=== PATIENT | male | born 1975 | race American Indian/Alaskan Native ===

== ENCOUNTER 2016-09-13 04:01 | Emergency (ER) | payer SELFPAY ==
[2016-09-13] MEDS ORDERED: NACL 0.9% 1000 ML 1,000 ML IV ONE (04:25)
[2016-09-13 05:20] LABS: Basophils % (Auto) 0.4 % (0.0-1.8); Eosinophils % (Auto) 1.4 % (0.0-4.3); Hematocrit 43.2 % (35.5-45.6); Hemoglobin 14.1 gm/dl (11.8-15.2); Mean Corpuscular HGB Conc 33 % (32-34); Mean Corpuscular Hemoglobin 31 pg (28-32); Mean Corpuscular Volume 94 fl (84-94); Platelet Count 166 K/mm3 (140-440); Red Blood Count 4.58 M/mm3 (3.65-5.03); Red Cell Distribution Width 13.4 % (13.2-15.2); White Blood Count 5.2 K/mm3 (4.5-11.0)
[2016-09-13 05:25] LABS: INR 0.93 (0.87-1.13)
[2016-09-13 05:26] LABS: Partial Thromboplastin Time 29.9 Sec. (24.2-36.6)
[2016-09-13 05:30] LABS: Alanine Aminotransferase 20 units/L (7-56); Albumin 4.1 g/dL (3.9-5); Albumin/Globulin Ratio 1.5 %; Alkaline Phosphatase 73 units/L (35-129); Anion Gap 12 mmol/L; Bilirubin,Total 0.4 mg/dL (0.1-1.2); Blood Urea Nitrogen 10 mg/dL (9-20); Calcium 8.9 mg/dL (8.4-10.2); Carbon Dioxide 31 mmol/L (22-30); Glucose 96 mg/dL (75-100); Lipase 17 units/L (13-60); Potassium 3.9 mmol/L (3.6-5.0); Sodium 140 mmol/L (137-145); Total Protein 6.9 g/dL (6.3-8.2)
[2016-09-13 08:13] LABS: Bilirubin,Urine NEG (Negative); Blood,Urine NEG (Negative); Ketones,Urine NEG (Negative); Leukocyte Esterase,Urine NEG (Negative); Mucus,Urine FEW /HPF; Nitrite,Urine NEG (Negative); Protein,Urine <15 mg/dL mg/dL (Negative); RBC,Urine < 1.0 /HPF (0.0-6.0); Urobilinogen,Urine < 2.0 mg/dL (<2.0); WBC,Urine < 1.0 /HPF (0.0-6.0)
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
[2016-09-13 11:17] VITALS: BP 143/91
== END 2016-09-13 11:23 | disposition home or self-care (01) ==
LOC: ED 04:01
DX: K62.5 Hemorrhage of anus and rectum (principal); R10.2 Pelvic and perineal pain; Z21 Asymptomatic human immunodeficiency virus [HIV] infection status
CPT/HCPCS: 36415; 80053; 81001; 82271; 83690; 85025; 85610; 85730; 86850; 86900; 86901; 93005; 93010; 99284

== ENCOUNTER 2021-08-29 08:44 | Emergency (ER) | payer BC ==
[2021-08-29] MEDS ORDERED: LIDOCAINE VISCOUS 2% 15 ML ORAL LIQD PO ONE (09:26)
[2021-08-29] MEDS ORDERED: ACETAMINOPHEN 500 MG TAB PO ONE (09:26)
[2021-08-29] MEDS ORDERED: ALUM-MAG HYDROXIDE-SIMETHICONE 200-200-20MG/5ML ORAL LIQD 30 ML PO ONE (09:26)
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
[2021-08-29 09:44] LABS: Eosinophils % (Auto) 0.7 % (0.0-4.3); Hematocrit 41.5 % (35.5-45.6); Hemoglobin 14.2 gm/dl (11.8-15.2); Lymphocytes # (Auto) 1.1 K/mm3 (1.2-5.4); Lymphocytes % (Auto) 19.5 % (13.4-35.0); Mean Corpuscular HGB Conc 34 % (32-34); Mean Corpuscular Volume 99 fl (84-94); Monocytes # (Auto) 0.4 K/mm3 (0.0-0.8); Monocytes % (Auto) 7.5 % (0.0-7.3); Platelet Count 193 K/mm3 (140-440); Red Blood Count 4.19 M/mm3 (3.65-5.03); Red Cell Distribution Width 13.5 % (13.2-15.2)
--- NOTE | 2021-08-29 09:50 | XRay Report ---
CHEST 1 VIEW INDICATION / CLINICAL INFORMATION: Chest Pain. COMPARISON: None available. FINDINGS: SUPPORT DEVICES: None. HEART / MEDIASTINUM: No significant abnormality. LUNGS / PLEURA: No significant pulmonary or pleural abnormality. No pneumothorax. ADDITIONAL FINDINGS: No significant additional findings. IMPRESSION: 1. No acute findings. Signer Name: Xavier Proctor MD Signed: 08/29/2021 9:45 AM Workstation Name: [id number]
[2021-08-29 10:07] LABS: Alanine Aminotransferase 22 units/L (7-56); Albumin 4.2 g/dL (3.9-5); BUN/Creatinine Ratio 9; Blood Urea Nitrogen 9 mg/dL (9-20); Calcium 9.3 mg/dL (8.4-10.2); Hemolysis Index 33
--- NOTE | 2021-08-29 10:28 | Electrocardiograph Report ---
[facility] Test Date: 2021-08-29 Test Time: 08:51:18 Pat Name: TANO SANON JR Department: Room: Gender: M Environmental Engineering Technician: COBY : 1975 Requested By: ED DOC Order Number: [id number] Reading MD: Saúl Merino Measurements Intervals [place] Rate: 73 P: 65 [place]: 149 QRS: 75 QRSD: 101 T: 74 QT: 360 QTc: 398 Interpretive Statements Sinus rhythm Probable left ventricular hypertrophy No previous ECG available for comparison Electronically Signed On 08-29-2021 10:27:54 EST by Saúl Merino
[2021-08-29 11:15] VITALS: BP 124/76
== END 2021-08-29 11:28 | disposition home or self-care (01) ==
LOC: ED 08:44
DX: K27.3 Acute peptic ulcer, site unspecified, without hemorrhage or perforation (principal); R07.9 Chest pain, unspecified; Z21 Asymptomatic human immunodeficiency virus [HIV] infection status; Z90.49 Acquired absence of other specified parts of digestive tract; Z79.899 Other long term (current) drug therapy
CPT/HCPCS: 36415; 71045; 80053; 83690; 84484; 85025; 93005; 99284